=== PATIENT | female | born 1985 | race Caucasian/White ===

== ENCOUNTER 2023-10-01 20:34 | Outpatient (CLI) | payer OTHER ==
[~2023-10-01] VITALS: Ht 180.3 cm; Wt 78.2 kg
[2023-10-01 20:55] VITALS: BP 130/69; PULSE 77; TEMP 98.1
--- NOTE | 2023-10-01 20:55 | NUR ---
EFM APPLIED. PT TO L&D WITH COMPLAINTS OF CONTRACTIONS INCREASING IN FREQUENCY AND INTENSITY. NO LEAKING FLUID OR BLEEDING. REPORTS GOOD MOVEMENT. DENIES ANY PROBLEMS WITH THE . STATES SHE HAD SVE IN OFFICE ABOUT 10 DAYS AGO AND WAS 1CM AND THICK.
[2023-10-01] MEDS ORDERED: LR 1,000 ML IV PRN (21:00)
--- NOTE | 2023-10-01 21:40 | NUR ---
PT UP TO AMBULATE AND SIT ON LABOR BALL.
[2023-10-01] MEDS ORDERED: PRENATAL FORMU1 EAC3 PO (21:50)
[2023-10-01] MEDS ORDERED: OMEGA-3 1000 MG1 CAP PO (21:50)
--- NOTE | 2023-10-01 22:10 | NUR ---
EFM REAPPLIED. PT STATES SOME CONTRACTIONS FEEL STRONG. STILL IRREGULAR.
[2023-10-01 22:30] VITALS: BP 102/61; PULSE 75
--- NOTE | 2023-10-01 23:00 | NUR ---
DISCHARGED HOME AMBULATORY WITH INSTRUCTIONS.
--- NOTE | 2023-10-01 23:06 | NUR ---
CERVIX UNCHANGED FROM PREVIOUS CHECK. DISCUSSED OPTIONS WITH PATIENT. AFTER DISCUSSION WITH SPOUSE, SHE FEELS COMFORTABLE GOING HOME. DISCUSSED SIGNS OF ACTIVE LABOR AND REASONS TO RETURN TO HOSPITAL. VERBALIZED UNDERSTANDING.
== END 2023-10-01 23:00 | disposition home or self-care (01) ==
LOC: LDRO 20:34
DX: O47.9 False labor, unspecified (principal); Z3A.00 Weeks of gestation of pregnancy not specified

== ENCOUNTER 2023-10-04 02:06 | Inpatient (IN) | payer OTHER ==
[~2023-10-04] VITALS: Ht 180.3 cm; Wt 78.2 kg
[2023-10-04] VITALS (43 sets, daily range): BP systolic 88–130; BP diastolic 50–81; PULSE 67–98; TEMP 97.4–97.9
[~2023-10-04 02:06] MED LIST: OMEGA-3 1000 MG1 CAP PO; PRENATAL FORMU1 EAC3 PO
[2023-10-04] MEDS ORDERED: LR 1,000 ML IV PRN (02:15)
[2023-10-04] MEDS ORDERED: LR 1,000 ML IV SCH (05:45)
[2023-10-04] MEDS ORDERED: LR & Oxytocin 500 ML IV SCH (05:45)
[2023-10-04 06:07] LABS: BASO % 0.3 % (0.0-2.0); EOS # 0.1 K/mm3 (0.0-0.7); EOS % 0.6 % (0.0-4.0); GRAN # 5.8 K/mm3 (1.4-6.5); GRAN % 74.2 % (42.2-75.2); HEMOGLOBIN 12.3 g/dl (12.5-16.0); LYMPH # 1.2 K/mm3 (1.2-3.4); LYMPH % 15.7 % (20.0-51.0); MEAN CELL VOLUME 93 fl (80.0-100.0); MEAN CORPUSCULAR HEMOGLOBIN 31 pg (27-31); MEAN CORPUSCULAR HGB CONC 34 g/dl (33.0-37.0); MEAN PLATELET VOLUME 10.2 fl (7.4-10.4); MONO # 0.7 K/mm3 (0.1-0.6); MONO % 8.8 % (1.7-9.3); PLATELET COUNT 204 K/mm3 (130-400); RED BLOOD COUNT 3.92 M/mm3 (4.10-5.30); REDCELL DISTRIBUTION WIDTH-CV 13.2 % (11.5-14.5)
[2023-10-04 06:15] LABS: HEMATOCRIT 36.6 % (37.0-47.0)
[2023-10-04] MEDS ORDERED: ROPivacaine PF 0.2% 200 ML IV ONE (09:11)
[2023-10-04] MEDS ORDERED: diphenhydrAMINE 25 MG CAP PO PRN ×2 (10:30→13:00)
[2023-10-04] MEDS ORDERED: Ondansetron 4 MG/2 ML VIAL IV PRN ×2 (10:30→13:00)
[2023-10-04] MEDS ORDERED: diphenhydrAMINE 50 MG/ML 1 ML VIAL IV PRN ×2 (10:30→13:00)
[2023-10-04] MEDS ORDERED: ePHEDrine 50 MG/10 ML VIAL IV PRN ×2 (10:30→13:00)
[2023-10-04] MEDS ORDERED: Naloxone 0.4 MG/ML VIAL IV PRN ×3 (10:30→19:15)
[2023-10-04] MEDS ORDERED: Magnes Hydrox (MOM) 80 MG/ML 30 ML CUP PO PRN (17:15)
[2023-10-04] MEDS ORDERED: Loratadine 10 MG TAB PO PRN (17:15)
[2023-10-04] MEDS ORDERED: Mag/Al Hydrox/Simeth Susp 30 ML CUP PO PRN (19:15)
[2023-10-04] MEDS ORDERED: Witch Hazel 50% Pads Bulk TUB TP PRN (19:15)
[2023-10-04] MEDS ORDERED: Acetaminophen 500 MG TAB PO SCH (19:15)
[2023-10-04] MEDS ORDERED: Ibuprofen 600 MG TAB PO SCH (19:15)
[2023-10-04] MEDS ORDERED: oxyCODONE 5 MG TAB PO PRN (19:15)
[2023-10-04] MEDS ORDERED: Measles/Mumps/Rubella Virus Vaccine Live w Diluent 0.5 ML VIAL SQ SCH (19:15)
[2023-10-04] MEDS ORDERED: Phenylephrine/Mineral Oil/Petrolatum 57 GM TUBE RC PRN (19:15)
[2023-10-04] MEDS ORDERED: traZODone 50 MG TAB PO PRN (21:00)
[2023-10-05 00:20] VITALS: BP 105/62; PULSE 70; TEMP 97.8
[2023-10-05 05:16] LABS: HEMATOCRIT 28.6 % (37.0-47.0); HEMOGLOBIN 9.7 g/dl (12.5-16.0)
[2023-10-05] MEDS ORDERED: Sennosides/Docusate 8.6-50 MG TAB PO SCH (08:00)
[2023-10-05] MEDS ORDERED: Rho(D) Imm Globulin 1,500 UNITS (300 MCG)/2 ML SYRINGE IV\\IM SCH (08:00)
[2023-10-05 08:50] VITALS: BP 107/57; PULSE 72
[2023-10-05] MEDS ORDERED: Omega-3 Fatty Acid Esters (OTC) 1,000 MG CAP PO SCH (09:00)
[2023-10-05] MEDS ORDERED: Prenatal Vitamins/Iron/FA TAB PO SCH (09:00)
== END 2023-10-05 19:35 | disposition home or self-care (01) | DRG 806 ==
LOC: LDRO 02:06 → LDR 02:15 → LDRO 04:59 → OB 05:00 → LDR 05:00 → OB 21:25
PROVIDERS: Obstetrics & Gynecology; ADMIT Obstetrics & Gynecology
PROC: 10E0XZZ Delivery of Products of Conception, External Approach (ICD-10-PCS; principal; 2023-10-04)
PROC: 0W8NXZZ Division of Female Perineum, External Approach (ICD-10-PCS; 2023-10-04)
DX: O99.284 Endocrine, nutritional and metabolic diseases complicating childbirth (principal); D62 Acute posthemorrhagic anemia; Z37.0 Single live birth; E03.9 Hypothyroidism, unspecified; Z3A.38 38 weeks gestation of pregnancy; O99.344 Other mental disorders complicating childbirth; F32.A Depression, unspecified; O26.893 Other specified pregnancy related conditions, third trimester; O69.2XX0 Labor and delivery complicated by other cord entanglement, with compression, not applicable or unspecified; O76 Abnormality in fetal heart rate and rhythm complicating labor and delivery; O90.81 Anemia of the puerperium; Z67.41 Type O blood, Rh negative
CPT/HCPCS: J2590; J2791; J2795; J7120